=== PATIENT | male | born 1950 | race Caucasian/White ===

== ENCOUNTER 2020-02-07 08:58 | Outpatient (NON) | payer MEDICARE, SELFPAY ==
[2020-02-07 22:56] LABS: SARS-CoV-2 RNA PCR Negative
== END 2020-02-07 08:59 ==
PROVIDERS: Visit Provider Family Medicine
DX: Z20.828 Contact with and (suspected) exposure to other viral communicable diseases (principal)
CPT/HCPCS: 87635; C9803; U0003

== ENCOUNTER 2022-02-18 10:22 | Outpatient (CLI) | payer MEDICARE, SELFPAY ==
--- NOTE | 2022-02-18 11:15 | NEURO_ITS ---
Impression: # Complains of restless legs. # Polyphasic responses on proximal stimulation. # Needle/EMG exam not neurogenic. # Findings consistent with axonal neuropathy. # Clinical correlation recommended. Motor Nerve Conduction Lower Extremities Peroneal Nerve Conduction Velocity (m/sec) Terminal Latency (msec) Response Voltage(mV) Popliteal space-Ankle Ankle Extensor Dig Brevis Popliteal space Ankle Right 44 4.5 4 4 Left 41 4.2 2 2 Tibial Nerve Conduction Velocity (m/sec) Terminal Latency (msec) Response Voltage(mV) Popliteal space-Ankle Ankle-Extensor Dig Brevis Popliteal space Ankle Right 44 4.1 2 3 Left 45 4.1 1 1 F-waves Peroneal Nerve (ms) Tibial Nerve (ms) Right 57.2 57.1 Left 56.5 57.1 Sensory Nerve Conduction Lower Extremities Sural Nerve Stimulation Terminal Latency (msec) Ankle Response Voltage (uV) Ankle Response Velocity (m/sec) Right 3.8 8 42 Left 3.8 15 42 Superficial Peroneal Nerve Stimulation Terminal Latency (msec) Ankle Response Voltage (uV) Ankle Response Velocity (m/sec) Right 4.0 14 40 Left 3.8 18 42 Left Right Muscles Examined Fibrillation Fasciculation Scarcity Voltage Duration Left Right Left Right Left Right Left Right Left Right X X Ant Tibialis X X Gastroc X X Fibularis Long X X Flex Dig Long X X Ext Dig Brev Abd Hallucis Quadriceps Paraspinals MTDD
== END 2022-02-18 10:23 | disposition home or self-care (01) ==
LOC: ANHNEURO 10:25
PROVIDERS: PCP Family Medicine; Visit Provider Family Medicine
DX: G25.81 Restless legs syndrome (principal); G62.9 Polyneuropathy, unspecified; M79.671 Pain in right foot; M79.672 Pain in left foot
CPT/HCPCS: 95886; 95910